=== PATIENT | female | born 1940 | race Caucasian/White ===

== ENCOUNTER → 2023-10-26 12:01 | Outpatient (REF) | payer MEDICARE, SELFPAY ==
--- NOTE | 2023-11-05 09:53 | OID.L.PAT ---
Pulmonary Nodule Pat Letter
- -
11/05/23
ZINA MANN
[address] [facility]
[place], [place] [address]
Dear ZINA,
A pulmonary nodule was seen on an imaging study done by [facility]. This was reviewed by the [facility] Pulmonary Nodule Advisory Board and the following recommendation was made:
Recommendation: Follow up Chest CT - now
If you have any questions, please do not hesitate to contact your primary care physician. If you are in need of a Physician, you can go to [email or web address] and click on 'Find a Provider'. Type 'Family Medicine' in the search.
Oncology Nurse Navigator
[facility]
[phone]
--- NOTE | 2023-11-05 09:54 | OID.L.REC ---
Pulmonary Nodule Follow Up
- Recommendation
11/05/23
Pulmonary Nodule Review Recommendations
Your patient, ZINA MANN, had a pulmonary nodule seen on a CT Abdomen/Pelvis done on 10/26/23 in the [facility] [place] Radiology Department.
This was reviewed by the [facility] [place] Pulmonary Nodule Advisory Board and the following recommendation was made:
Recommendation: Follow up Chest CT - now
If you have any questions please do not hesitate to contact us.
Sincerely,
Oncology Nurse Navigator
[facility] [place]
[phone]
== END ==
LOC: HWRAD 12:01
PROVIDERS: ATTENDING PHYSICIAN Family Medicine
DX: R19.8 Other specified symptoms and signs involving the digestive system and abdomen (principal); R11.0 Nausea
CPT/HCPCS: 74178; Q9967

== ENCOUNTER → 2023-11-07 15:28 | Outpatient (REF) | payer MEDICARE, SELFPAY | LOC: HWRAD 15:28 | PROVIDERS: ATTENDING PHYSICIAN Family Medicine | DX: R91.1 Solitary pulmonary nodule (principal) | CPT/HCPCS: 71250 ==

== ENCOUNTER → 2024-01-08 11:41 | Outpatient (REF) | payer MEDICARE, SELFPAY | LOC: HWWDC 11:41 | PROVIDERS: ATTENDING PHYSICIAN Family Medicine | DX: Z12.31 Encounter for screening mammogram for malignant neoplasm of breast (principal) | CPT/HCPCS: 77063; 77067 ==

== ENCOUNTER → 2024-11-19 12:52 | Outpatient (REF) | payer MEDICARE, SELFPAY | LOC: HWRAD 12:52 | PROVIDERS: ATTENDING PHYSICIAN Family Medicine | DX: R91.1 Solitary pulmonary nodule (principal) | CPT/HCPCS: 71250 ==

== ENCOUNTER → 2025-02-23 11:50 | Outpatient (REF) | payer MEDICARE, SELFPAY | LOC: HWWDC 11:50 | PROVIDERS: ATTENDING PHYSICIAN Obstetrics & Gynecology; FAMILY PHYSICIAN Family Medicine | DX: Z12.31 Encounter for screening mammogram for malignant neoplasm of breast (principal) | CPT/HCPCS: 77063; 77067 ==

== ENCOUNTER → 2025-02-27 09:28 | Outpatient (REF) | payer MEDICARE, SELFPAY | LOC: WDC 09:28 | PROVIDERS: ATTENDING PHYSICIAN Obstetrics & Gynecology; FAMILY PHYSICIAN Family Medicine | DX: R92.8 Other abnormal and inconclusive findings on diagnostic imaging of breast (principal) | CPT/HCPCS: 76642 ==

== ENCOUNTER → 2025-03-10 08:23 | Outpatient (REF) | payer MEDICARE, SELFPAY ==
--- NOTE | 2025-03-10 14:23 | OID.BR.INTR ---
[facility] Breast Navigator - Initial
- -
Date of Contact: 03/10/25
Met with patient. Patient given written information on navigator services available at [facility]. Will follow up as needed per protocol.
== END ==
LOC: WDC 08:23
PROVIDERS: ATTENDING PHYSICIAN Obstetrics & Gynecology; FAMILY PHYSICIAN Family Medicine
DX: N63.24 Unspecified lump in the left breast, lower inner quadrant (principal)
CPT/HCPCS: 88305; 19083; 88341; 88342; 88360; A4648

== ENCOUNTER 2025-03-12 06:33 | Day surgery (SDC) | payer MEDICARE, SELFPAY | END 2025-03-12 12:29 | disposition home or self-care (01) | LOC: GI 06:33 | PROVIDERS: ATTENDING PHYSICIAN Internal Medicine | DX: Z12.11 Encounter for screening for malignant neoplasm of colon (principal); R19.5 Other fecal abnormalities; K64.8 Other hemorrhoids; K57.30 Diverticulosis of large intestine without perforation or abscess without bleeding; D12.2 Benign neoplasm of ascending colon; K62.1 Rectal polyp; K63.5 Polyp of colon | CPT/HCPCS: 45385; 45380; 88305 ==

== ENCOUNTER → 2025-03-24 13:06 | Outpatient (REF) | payer MEDICARE, SELFPAY | LOC: WDC 13:06 | PROVIDERS: ATTENDING PHYSICIAN Obstetrics & Gynecology; FAMILY PHYSICIAN Family Medicine | DX: R92.2 Inconclusive mammogram (principal) | CPT/HCPCS: 76641 ==

== ENCOUNTER → 2025-04-16 08:05 | Outpatient (REF) | payer MEDICARE, SELFPAY | LOC: WDC 08:05 | PROVIDERS: ATTENDING PHYSICIAN Surgery | DX: C50.412 Malignant neoplasm of upper-outer quadrant of left female breast (principal) | CPT/HCPCS: 19285; A4648 ==

== ENCOUNTER 2025-04-17 06:13 | Day surgery (SDC) | payer MEDICARE, SELFPAY ==
[2025-04-08 14:17] VITALS: BMI 27.5
[2025-04-17 10:10] VITALS: BMI 27.5
[2025-04-17 10:11] VITALS: BP 164/82
[2025-04-17] MEDS: TYLENOL 1000 MG PO (10:27)
[2025-04-17] MEDS: LOVENOX 40 MG SC (10:40)
--- NOTE | 2025-04-17 12:18 | W.IMMPOSTOP ---
Surgical Immed Post Op Note
-
Primary Surgeon: Benedict
Assisting Surgeon: None
Pre-op Diagnosis: Left breast ca
Post-op Diagnosis: Same
Procedure Performed: Left localized lumpectomy
Anesthesia Type: TIVA
Specimen / Cultures: Left lumpectomy
Estimated Blood Loss: 4cc
Complications: None
Operative Findings: mass, clip, and reflector in specimen
--- NOTE | 2025-04-17 12:20 | OR.RPT ---
Operative Report
Operative Report
Date of procedure: 04/17/2025
Surgeon: Benedict
Pre-op diagnosis: Left breast CA
Postop diagnosis: Left breast CA
Procedure: Left localized lumpectomy
Patient is an 84-year-old female who had image detected early stage favorable left breast cancer presents for breast conservation surgery. She qualified to omit axillary sampling. On the day prior to the procedure the patient presented to the
[facility] where a Agueda reflector was placed under ultrasound guidance. On the day of surgery she presented to the same-day surgical services unit. She verified site and procedure and was prepped. DVT and antibiotic prophylaxis were
provided.
She was taken to the operating room and in the supine position intravenous sedation was delivered. An appropriate time out procedure was performed by all team members. Left breast was prepped and draped in the usual sterile fashion and all tissues
were anesthetized with 1% lidocaine plain. Curvilinear incision was made overlying the area of highest external gamma signal. Dissection was carried down to the mass using the cautery and a wide resection lumpectomy was performed. Time out of
body was noted and the specimen was oriented for the pathologist. Specimen radiography confirmed the presence of the mass reflector and clip within it. Additional margins were harvested for permanent analysis from the posterior, medial, superior,
lateral, inferior, and anterior dimensions. These were oriented as well.
Hemostasis was verified. Hemoclips were placed in the resection cavity and Marcaine 0.5% plain was instilled. The wound was closed using simple interrupted 3-0 plain in deep intermediate and subcutaneous tissue and skin was closed with a running
subcuticular 4 Monocryl. Surgical glue and sterile compressive dressings were applied. All sponge needle and instrument counts were correct and the patient was transferred to the recovery room in stable condition thank you
([id number])
[2025-04-17 12:21] VITALS: BP 114/46
[2025-04-17 12:31] VITALS: BP 148/56
[2025-04-17 12:45] VITALS: BP 148/54
== END 2025-04-17 13:00 | disposition home or self-care (01) ==
LOC: SDS 06:13
PROVIDERS: ATTENDING PHYSICIAN Surgery; FAMILY PHYSICIAN Family Medicine
DX: C50.912 Malignant neoplasm of unspecified site of left female breast (principal)
CPT/HCPCS: 19301; 76098; 88305; 88307

== ENCOUNTER → 2025-07-16 10:13 | Outpatient (REF) | payer MEDICARE, SELFPAY | LOC: HWRAD 10:13 | PROVIDERS: ATTENDING PHYSICIAN Family Medicine | DX: M81.0 Age-related osteoporosis without current pathological fracture (principal) | CPT/HCPCS: 77080 ==